=== PATIENT | male | born 1960 | race African-American/Black ===

== ENCOUNTER 2017-04-01 06:12 | Inpatient (IN) | payer OTHER ==
[2017-04-01] VITALS (31 sets, daily range): BP systolic 50–95; BP diastolic 16–82; PULSE 77–91; RESP 15–16; TEMP 98; Ht 177.8 cm; Wt 114.1 kg
[~2017-04-01] VITALS: Ht 177.8 cm; Wt 114.1 kg
[2017-04-01] MEDS ORDERED: PANTOPRAZOLE IV 80 MG in SOD CHLORIDE 0.9% 100 ML IV STA (06:31)
[2017-04-01] MEDS ORDERED: SOD CHLORIDE 0.9% 1,000 ML IV STA (06:31)
[2017-04-01] MEDS ORDERED: PANTOPRAZOLE IV 80 MG in SOD CHLORIDE 0.9% 100 ML IVPB STA (06:31)
[2017-04-01] MEDS ORDERED: ONDANSETRON 4 MG INJ IV STA (06:32)
[2017-04-01] MEDS ORDERED: HYDROmorphONE 1 MG/ML SYG IV STA (06:32)
[2017-04-01] MEDS ORDERED: EPINEPHrine 0.1 MG/ML SYG ONE ×2 (07:00→15:33)
--- NOTE | 2017-04-01 07:35 | RADRPT ---
PROCEDURE: XR Chest. CLINICAL INDICATION: Abdominal pain. Possible GI bleed. TECHNIQUE: Portable single view of the chest COMPARISON: 2012 FINDINGS: New AICD device is seen in place. Enlarged cardiopericardial silhouette. Reduced lung volumes with possible atelectasis or infiltrate of the right lower lobe. Left lung is clear. No large effusion . No definite acute bony abnormality. Top normal pulmonary vascularity. IMPRESSION: Enlarged cardiopericardial silhouette and AICD device. Question right base atelectasis or infiltrat e. Lateral view may be helpful. RPTAT: [facility] Physician Anthony Date Time Electronically viewed and signed by Susi Pinto Physician on 04/01/2017 07:35 LE/
[2017-04-01 07:57] LABS: ABNORMAL IP MESSAGE 1; BASOPHILS % 0.1 % (0.0-2.0); EOSINOPHILS % 0.2 % (0.0-7.0); HEMATOCRIT 20.3 % (42.0-52.0); LYMPHOCYTES # 1.8 10^3/ul (0.8-2.9); LYMPHOCYTES % 11.3 % (15.0-51.0); MEAN CORPUSCULAR HEMOGLOBIN 29.3 pg (29.0-33.0); MEAN CORPUSCULAR VOLUME 91.4 fl (82.0-101.0); MEAN PLATELET VOLUME 9.8 fl (7.4-10.4); MONOCYTE # 1.3 10^3/ul (0.3-0.9); MONOCYTES % 8.5 % (0.0-11.0); NEUTROPHIL # 12.3 10^3/ul (1.6-7.5); NEUTROPHILS % 77.9 % (39.0-77.0); PLATELET COUNT 163 10^3/UL (140-415); RED BLOOD COUNT 2.22 10^6/ul (4.70-6.10); RED CELL DISTRIBUTION WIDTH 15.9 % (11.5-14.5); WHITE BLOOD COUNT 15.7 10^3/ul (4.8-10.8)
[2017-04-01 08:02] LABS: ADD SCAN DIFF YES; HEMOGLOBIN 6.5 g/dl (14.0-18.0)
[2017-04-01 08:05] LABS: INR 2.94; PARTIAL THROMBOPLASTIN TIME 30.6 Sec (25.0-35.0); PROTIME 31.1 Sec (12.2-14.2); PT RATIO 2.4
[2017-04-01 08:11] LABS: ALBUMIN 2.9 g/dl (3.3-4.9)
[2017-04-01 08:12] LABS: POTASSIUM 3.7 mmol/L (3.5-5.1)
[2017-04-01 08:14] LABS: ALBUMIN/GLOBULIN RATIO 1.07; BILIRUBIN,INDIRECT 0.2 mg/dl (0-1.1); BILIRUBIN,TOTAL 0.2 mg/dl (0.2-1.3); CREATININE 1.78 mg/dl (0.61-1.24); TOTAL PROTEIN 5.6 g/dl (6.1-8.1)
[2017-04-01 08:15] LABS: CALCIUM 7.8 mg/dl (8.4-10.2)
--- NOTE | 2017-04-01 09:05 | ERA ---
ER Documentation Chief Complaint Date/Time DATE: 04/01/17 TIME: 09:01 Chief Complaint BIBA RA90,vomited dark red bld,diarrhea w/ dark red bld since 1999 last nig HPI This is a 56-year-old male who states he had 4 episodes of coffee-ground emesis this morning followed by 3 or 4 loose stools are described as a maroon color. The patient denies any NSAID or aspirin use but states he drinks nearly daily but is not an alcoholic. He said he did not drink last night. Patient not complaining of any dizziness. He says he has some very mild left-sided abdominal pain. No chest pain shortness of breath fainting or near syncope. He says he has never had any history of GI bleeding in the past. ROS All systems reviewed and are negative except as per history of present illness. Allergies Allergies: Coded Allergies: JACINDA Inhibitors (Verified Allergy, Unknown, 04/01/17) PMhx/Soc History of Surgery: No Anesthesia Reaction: No Hx Neurological Disorder: No Hx Respiratory Disorders: Yes Hx Cardiac Disorders: Yes Hx Psychiatric Problems: No Hx Miscellaneous Medical Probl: No Hx Alcohol Use: Yes Hx Substance Use: Yes (IN A PST USED DRUGS) Hx Tobacco Use: Yes (ACTIVE SMOKER) FmHx Family History: No coronary disease Physical Exam Vitals Vital Signs Date Time Temp Pulse Resp B/P Pulse Ox O2 Delivery O2 Flow Rate FiO2 04/01/17 06:43 79 14 128/88 100 Nasal Cannula 2.0 04/01/17 06:18 97.5 80 18 99/63 96 Physical Exam Const: Well-developed, well-nourished Head: Atraumatic, normocephalic Eyes: Normal Conjunctiva, PERRLA, EOMI, normal sclera, no nystagmus ENT: Normal External Ears, Nose and Mouth, moist mucus membranes. Neck: Full range of motion. No meningismus, no lymphadenopathy. Resp: Clear to auscultation bilaterally, no wheezing, rhonchi, rales Cardio: Regular rate and rhythm, no murmurs, S1 S2 present Abd: Soft, very mild left-sided mid abdominal pain, non distended. Normal bowel sounds, no guarding or rebound, no pulsitile abdominal masses or bruits Skin: No petechiae or rashes, no ecchymosis , no maculopapular rash Back: No midline or flank tenderness Ext: No cyanosis, or edema, FROM x 4, normal inspection, neurovascularly intact x 4 Neur: Awake and alert, STR 5/5 x 4, sensation intact x 4, no focal findings, cerebellum intact Psych: Normal Mood and Affect Result Diagram: 04/01/17 0730 04/01/17 0730 Results 24 hrs Laboratory Tests Test 04/01/17 07:30 White Blood Count 15.710^3/ul Red Blood Count 2.2210^6/ul Hemoglobin 6.5g/dl Hematocrit 20.3% Mean Corpuscular Volume 91.4fl Mean Corpuscular Hemoglobin 29.3pg Mean Corpuscular Hemoglobin Concent 32.0g/dl Red Cell Distribution Width 15.9% Platelet Count 69489^3/UL Mean Platelet Volume 9.8fl Neutrophils % 77.9% Lymphocytes % 11.3% Monocytes % 8.5% Eosinophils % 0.2% Basophils % 0.1% Nucleated Red Blood Cells % 0.0/100WBC Neutrophils # 12.310^3/ul Lymphocytes # 1.810^3/ul Monocytes # 1.310^3/ul Eosinophils # 0.010^3/ul Basophils # 0.010^3/ul Nucleated Red Blood Cells # 0.010^3/ul Prothrombin Time 31.1Sec Prothrombin Time Ratio 2.4 INR International Normalized Ratio 2.94 Activated Partial Thromboplast Time 30.6Sec Sodium Level 138mmol/L Potassium Level 3.7mmol/L Chloride Level 98mmol/L Carbon Dioxide Level 27mmol/L Anion Gap 17 Blood Urea Nitrogen 48mg/dl Creatinine 1.78mg/dl Glucose Level 142mg/dl Calcium Level 7.8mg/dl Total Bilirubin 0.2mg/dl Direct Bilirubin 0.00mg/dl Indirect Bilirubin 0.2mg/dl Aspartate Amino Transf (AST/SGOT) 53IU/L Alanine Aminotransferase (ALT/SGPT) 62IU/L Alkaline Phosphatase 64IU/L Total Protein 5.6g/dl Albumin 2.9g/dl Globulin 2.70g/dl Albumin/Globulin Ratio 1.07 Lipase 249U/L Current Medications Medications (Trade) Dose Ordered Sig/Vonnie Route PRN Reason Start Time Stop Time Status Last Admin Dose Admin Sodium Chloride 1,000 ml @ 1,000 mls/hr Q1H STAT IV 04/01/17 06:31 04/01/17 07:30 DC 04/01/17 07:27 Pantoprazole 80 mg/Sodium Chloride 100 ml @ 400 mls/hr ONCE STAT IVPB 04/01/17 06:31 04/01/17 06:45 DC 04/01/17 08:29 Pantoprazole/ Sodium Chloride (Protonix Iv/NS) 100 ml @ 10 mls/hr ONCE STAT IV 04/01/17 06:31 04/01/17 16:30 Hydromorphone HCl (Dilaudid) 1 mg ONCE STAT IV 04/01/17 06:32 04/01/17 06:33 DC 04/01/17 07:26 Ondansetron HCl (Zofran Inj) 4 mg ONCE STAT IV 04/01/17 06:32 04/01/17 06:33 DC 04/01/17 07:26 Procedures/MDM PROCEDURE: XR Chest. CLINICAL INDICATION: Abdominal pain. Possible GI bleed. TECHNIQUE: Portable single view of the chest COMPARISON: 2012 FINDINGS: New AICD device is seen in place. Enlarged cardiopericardial silhouette. Reduced lung volumes with possible atelectasis or infiltrate of the right lower lobe. Left lung is clear. No large effusion. No definite acute bony abnormality. Top normal pulmonary vascularity. IMPRESSION: Enlarged cardiopericardial silhouette and AICD device. Question right base atelectasis or infiltrate. Lateral view may be helpful. RPTAT: [facility] Physician Anthony Date Time Electronically viewed and signed by Susi Pinto Physician on 04/01/2017 07 :35 JAY/ CC: ASH WEINBERG DO EKG: Rate/Rhythm: Normal Sinus Rhythm,NL intervals QRS, ST, QT: NORMAL PA, QRS, prolonged QT] Impression: NORMAL EKG Spoke with GIs consultation Patient's hemoglobin is 6.5 will start transfusing 2 units of packed red blood cells. The patient is on Protonix drip and bolus. We will admit the patient for endoscopy, packed red blood cell transfusion and GI bleed workup Critical Care Time: 30 minutes Treatments/Evaluations: Close monitoring and treatment of unstable vital signs, cardiorespiratory, and neurologic status, while maintaining tight balance of fluid, respiratory, and cardiac interventions. This time includes discussing the case with the patient and the patient's family. This time does not include all procedures stated elsewhere in this record. This time also includes reviewing old records, labs and radiological studies. This time includes examining and re-examining the patient. Additionally, this time also includes arranging care with admitting and consulting physicians. Departure Diagnosis: Primary Impression: GI bleed Qualified Code: K92.2 - Gastrointestinal hemorrhage, unspecified gastrointestinal hemorrhage type Additional Impression: Anemia Qualified Code: D64.9 - Anemia, unspecified type Condition: Stable ASH WEINBERG DO April 01, 2017 09:05
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
[2017-04-01] MEDS ORDERED: SOD CHLORIDE 0.9% 1,000 ML IV SCH ×2 (09:28→16:00)
[2017-04-01] MEDS ORDERED: ACETAMINOPHEN 325 MG TAB PO PRN (09:30)
[2017-04-01] MEDS ORDERED: ONDANSETRON 4 MG INJ IV PRN (09:30)
[2017-04-01] MEDS ORDERED: LIDOCAINE 1% (MPF) 5 ML VIAL SC ONE (10:00)
[2017-04-01] MEDS ORDERED: ONDANSETRON (ODT) 4 MG TAB ODT STA (10:12)
[2017-04-01] MEDS ORDERED: ASPI81TA3 PO (11:05)
[2017-04-01] MEDS ORDERED: ATOR80TA75 PO (11:05)
[2017-04-01] MEDS ORDERED: BUME1TAB18 PO (11:05)
[2017-04-01] MEDS ORDERED: HYDR-3672 PO (11:05)
[2017-04-01] MEDS ORDERED: SPIR25TA PO (11:05)
[2017-04-01] MEDS ORDERED: ISOS60TA PO (11:05)
[2017-04-01] MEDS ORDERED: AMLO5TAB4 PO (11:05)
[2017-04-01] MEDS ORDERED: WARF5TAB72 PO (11:05)
[2017-04-01] MEDS ORDERED: METO-429 PO (11:05)
[2017-04-01] MEDS ORDERED: AMIO200T2 PO (11:05)
[2017-04-01] MEDS ORDERED: BECL8.7A INH (11:05)
[2017-04-01] MEDS ORDERED: MAGN400T27 PO (11:05)
[2017-04-01] MEDS ORDERED: OMEP20CA16 PO (11:05)
[2017-04-01] MEDS ORDERED: MIDAZOLAM (DRIP) 50 mg/50 mL 50 ML IV STA (12:33)
[2017-04-01] MEDS ORDERED: MIDAZOLAM 1 MG/ML 2 ML INJ ONE (12:35)
--- NOTE | 2017-04-01 12:44 | RADRPT ---
PROCEDURE: XR Chest. CLINICAL INDICATION: PICC placement. TECHNIQUE: Chest x-ray, single view. COMPARISON: 04/01/2017. FINDINGS: The heart is enlarged. Pacemaker leads terminate within the expected locations of the right atrium and right ventricle. The lungs are clear. A left upper extremity PICC is in place. The tip of the catheter is obscured by the AICD device within the left upper chest. The PICC line does not extend b eyond this portion of the chest suggesting termination within the expected location of the mid dista l left subclavian vein. The endotracheal tube terminates within the mid trachea approximately 3.5 cm above the benjamin. Skeletal structures and upper abdomen are unremarkable. IMPRESSION: Left upper extremity PICC terminating within the expected location of the mid distal left subclavian vein. RPTAT: QQ .Radha Greer MD, Date Time Electronically viewed and signed by .Radha Greer MD, on 04/01/2017 12:44 .T/
[2017-04-01] MEDS ORDERED: OCTREOTIDE 500 MCG in SOD CHLORIDE 0.9% 49 ML IV STA (13:31)
[2017-04-01] MEDS ORDERED: OCTREOTIDE 50 MCG in SOD CHLORIDE 0.9% 25 ML IVPB STA (13:31)
--- NOTE | 2017-04-01 13:46 | RADRPT ---
PROCEDURE: US guidance for PICC line CLINICAL INDICATION: PICC line placement TECHNIQUE: Multiple real-time images were acquired of the patient's arm utilizing a high resolutio n transducer. This was performed by the PICC line nurse for venous access. COMPARISON: None FINDINGS: Ultrasound guidance for PICC line placement. IMPRESSION: Ultrasound guidance for PICC line placement. RPTAT: AA .Caleb Najera MD, MD Date Time Electronically viewed and signed by .Caleb Najera MD, on 04/01/2017 13:45 .S/
[2017-04-01 13:52] LABS: AADO2 Arterial 354.4 mmHg (7.0-24.0); Arterial COHb 0.3 % (0.0-3.0); Arterial Fraction of Oxyhgb 97.7 % (93.0-99.0); Arterial HCO3 7.7 mmol/L (22.0-26.0); Arterial MetHb 0.7 % (0.0-1.5); Arterial Total Hemglobin 8.1 g/dl (12.0-18.0); Blood Gas Low PEEP Setting 0 cmH2O; MODE VENT-AC
[2017-04-01 13:54] LABS: HEMATOCRIT 26.1 % (42.0-52.0); HEMOGLOBIN 7.6 g/dl (14.0-18.0)
[2017-04-01] MEDS ORDERED: NA BICARBONATE 8.4% 50 ML SYG IV ONE ×2 (14:00)
[2017-04-01] MEDS ORDERED: PHYTONADIONE 10 MG in DEXTROSE 5% 50 ML IVPB ONE ×5 (14:00→17:00)
--- NOTE | 2017-04-01 14:43 | CONS ---
Date/Time of Note Date/Time of Note DATE: 04/01/17 TIME: 14:24 Assessment/Plan Assessment/Plan Additional Assessment/Plan Assessment * Hematemesis Upper GI bleed least likely lower GI bleed Consider esophageal varices vs bleeding peptic ulcer disease * S/P cardiopulmonary arrest with ROSC * History of ETOH abuse * History of AICD * hypertension * History of heart failure * COPD Plan * Emergency EGD risks and benefit explained to common law agreed with planned procedure * Transfuse blood and monitor hemoglobin and hematocrit q 6 * PPI/octreotide drip Consultation Date/Type/Reason Admit Date/Time Date of Consultation: April 01, 2017 Type of Consultation: gastroenteroly Reason for Consultation upper gi bleed Referring Provider: MARSHA AVILA Hx of Present Illness 56 y/o male with past medical history of AICD,2 stents CAD,hypertension, cardiomyopathy,history of tracheostomy was brought to emergency room because of vomiting of blood x3 and hematochezia with associated weakness . Emergency room course revealed anemia with hemoglobin of 6.5,CT abdomen pelvis Mild diffuse wall thickening of the stomach more evident at the fundus with large volume debris.. Indeterminate 2 cm nodule in the right adrenal gland.. Borderline small size kidneys with no hydronephrosis.. Normal appendix.. Aortoiliac atherosclerosis.. Scattered colonic diverticula without evidence of acute diverticulitis.. Fat containing bilateral inguinal hernias. Mild cardiomegaly. Air trapping in the right middle lobe. Diffuse mild bronchial wall thickening. patient was awake and responsive however at around 1200 patient was unresponsive, cardiopulmonary resuscitation was performed and blood transfusion was started.Orogastric tube revealed fresh blood around 100 cc.Patient is presently intubated ,receiving blood.The common law claimed patient is on Coumadin prothrombin time 31.1 INR 2.94 PTT 30.6 .4 units of FFP and vitamin K is ordered I have explained the planned procedure with the partner and agreed with the planned procedure Past Medical History Medical History: congestive heart failure, coronary artery disease, GI bleed, high cholesterol, hypertension, other (copd) Past Surgical History Past Surgical Hx: other (tracheostomy,2 stents,) Family History Significant Family History: no pertinent family hx Social History Alcohol Use: heavy (4 cans of beer 4x a week) Smoking Status: Current every day smoker Exam/Review of Systems Vital Signs Vitals Vital Signs Date Time Temp Pulse Resp B/P Pulse Ox O2 Delivery O2 Flow Rate FiO2 04/01/17 14:00 75 23 100 50 04/01/17 13:45 98.0 99/34 Mechanical Ventilator 10.0 Exam Constitutional: frail Eyes: nl conjunctiva, nl sclera ENMT: intubated, other (orogastric tube) Neck: non-tender, supple Respiratory: clear to auscultation, diminished breath sounds Cardiovascular: nl pulses, regular rate and rhythm Gastrointestinal: non-tender, soft Musculoskeletal: nl extremities to inspection, nl gait and stance Extremities: normal pulses Skin: nl turgor, No rash or lesions Lymph: nl lymph nodes Results Result Diagram: 04/01/17 1345 04/01/17 0730 Results 24 hrs Laboratory Tests Test 04/01/17 07:30 04/01/17 10:42 04/01/17 13:30 04/01/17 13:45 White Blood Count 15.7 H Red Blood Count 2.22 L Hemoglobin 6.5 *L 7.6 L Hematocrit 20.3 L 26.1 #L Mean Corpuscular Volume 91.4 Mean Corpuscular Hemoglobin 29.3 Mean Corpuscular Hemoglobin Concent 32.0 Red Cell Distribution Width 15.9 H Platelet Count 163 Mean Platelet Volume 9.8 Neutrophils % 77.9 H Lymphocytes % 11.3 L Monocytes % 8.5 Eosinophils % 0.2 Basophils % 0.1 Nucleated Red Blood Cells % 0.0 Neutrophils # 12.3 H Lymphocytes # 1.8 Monocytes # 1.3 H Eosinophils # 0.0 Basophils # 0.0 Nucleated Red Blood Cells # 0.0 Prothrombin Time 31.1 H Prothrombin Time Ratio 2.4 INR International Normalized Ratio 2.94 Activated Partial Thromboplast Time 30.6 Sodium Level 138 Potassium Level 3.7 Chloride Level 98 Carbon Dioxide Level 27 Anion Gap 17 H Blood Urea Nitrogen 48 H Creatinine 1.78 H Glucose Level 142 Calcium Level 7.8 L Total Bilirubin 0.2 Direct Bilirubin 0.00 Indirect Bilirubin 0.2 Aspartate Amino Transf (AST/SGOT) 53 H Alanine Aminotransferase (ALT/SGPT) 62 Alkaline Phosphatase 64 Total Protein 5.6 L Albumin 2.9 L Globulin 2.70 Albumin/Globulin Ratio 1.07 Lipase 249 Bedside Glucose 130 Blood Gas Specimen Source Blood arterial Arterial Blood Date Drawn 04/01/2017 1:40:06 PM Arterial Blood pH (Temp corrected) 6.821 *L Arterial Blood pCO2 (Temp correct) 48.4 H Arterial Blood pO2 (Temp corrected) 310.2 H Arterial Blood HCO3 7.7 *L Arterial Blood Base Excess -25.0 L Arterial Blood Oxygen Saturation 98.7 H [place] Test N/A Arterial Blood Gas Puncture Site Left Radial Arterial Blood Carboxyhemoglobin 0.3 Arterial Blood Methemoglobin 0.7 Blood Gas A-a O2 Differential 354.4 H Oxyhemoglobin Percent 97.7 Total Hemoglobin 8.1 L Blood Gas Temperature 37.0 Blood Gas Respiration Rate 16.0 Blood Gas Actual Respiration Rate 18 Blood Gas Modality VENT-AC FiO2 100.0 Blood Gas Tidal Volume 550.0 Blood Gas Low PEEP Setting 0 Blood Gas Inspiratory Pressure 26.0 Blood Gas Critical Value Read Back MD LAURO Blood Gas Notified Whom KENDRA Blood Gas Notified Time 04/01/2017 1:52:49 PM Medications Medications Current Medications Sodium Chloride 1,000 ml @ 80 mls/hr [id number] IV Last administered on t 12:48; Admin Dose 80 MLS/HR; Start 04/01/17 at 09:28; Stop 04/01/17 at 21: 57 Phytonadione/ Dextrose (Vitamin K/D5W) 51 ml @ 102 mls/hr ONCE ONCE IVPB ; Start 04/01/17 at 14:00; Stop 04/01/17 at 14:29 RAMSES GARAY MD April 01, 2017 14:35
[2017-04-01] MEDS ORDERED: ROCURONIUM 50 MG INJ ONE (15:21)
[2017-04-01] MEDS ORDERED: PHENYLephrine (100 MCG/ML) 5ML SYG ONE (15:25)
[2017-04-01] MEDS ORDERED: EPHEDrine SULFATE 50 MG/5 ML SYG ONE (15:31)
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
[2017-04-01] MEDS ORDERED: NORepinephrine 8MG/250 ML (PMX 250 ML ONE (16:39)
[2017-04-01] MEDS ORDERED: PHENYLephrine 20MG IN 250 ML 250 ML ONE (16:48)
[2017-04-01] MEDS ORDERED: OCTREOTIDE 1 MG in SOD CHLORIDE 0.9% 95 ML IV SCH (17:30)
[2017-04-01] MEDS ORDERED: NA BICARBONATE 8.4% 50 ML SYG ONE (17:49)
[2017-04-01] MEDS ORDERED: CA CHLORIDE 10% 10 ML SYRINGE ONE (17:49)
[2017-04-01] MEDS ORDERED: PHENYLEPHRINE ONE (17:54)
[2017-04-01] MEDS: PANTOPRAZOLE IV 80 MG in SOD CHLORIDE 0.9% 100 ML IV SCH (18:05)
[2017-04-01] MEDS: SODIUM BICARBONATE (IV ADD) 100 MEQ in DEXTROSE 5% 1,000 ML IV SCH (18:05)
[2017-04-01 18:22] LABS: ADD SCAN DIFF NO
[2017-04-01 18:23] LABS: ABNORMAL IP MESSAGE 1; HEMATOCRIT 24.8 % (42.0-52.0); HEMOGLOBIN 7.6 g/dl (14.0-18.0); MEAN CORPUSCULAR HGB CONC 30.6 g/dl (32.0-37.0); MEAN PLATELET VOLUME 10.7 fl (7.4-10.4); RED BLOOD COUNT 2.53 10^6/ul (4.70-6.10); RED CELL DISTRIBUTION WIDTH 15.1 % (11.5-14.5); WHITE BLOOD COUNT 23.1 10^3/ul (4.8-10.8)
[2017-04-01 18:29] LABS: PLATELET COUNT 106 10^3/UL (140-415)
[2017-04-01] MEDS ORDERED: VASOPRESSIN 60 UNIT in DEXTROSE 5% 57 ML IV SCH (18:30)
[2017-04-01 18:32] LABS: INR 2.75; PROTIME 29.5 Sec (12.2-14.2); PT RATIO 2.3
[2017-04-01 18:33] LABS: PARTIAL THROMBOPLASTIN TIME 42.3 Sec (25.0-35.0)
[2017-04-01 18:49] LABS: EOSINOPHILS # 0.5 10^3/ul (0.0-0.5); LYMPHOCYTES # 2.3 10^3/ul (0.8-2.9); MONOCYTE # 0.2 10^3/ul (0.3-0.9); NEUTROPHIL # 20.1 10^3/ul (1.6-7.5)
[2017-04-01 18:50] LABS: ANISOCYTOSIS 1+; MICROCYTOSIS 1+; POLYCHROMASIA 1+
[2017-04-01 18:51] LABS: AADO2 Arterial 217.2 mmHg (7.0-24.0); Arterial Base Excess -23.7 mmol/L (-3.0-3); Arterial COHb 0.3 % (0.0-3.0); Arterial Fraction of Oxyhgb 82.7 % (93.0-99.0); Arterial HCO3 9.5 mmol/L (22.0-26.0); Arterial MetHb 0.5 % (0.0-1.5); Arterial Total Hemglobin 8.9 g/dl (12.0-18.0); Blood Gas Low PEEP Setting 0 cmH2O; MODE VENT - AC
--- NOTE | 2017-04-01 18:58 | PRO ---
Date/Time of Note Date/Time of Note DATE: 04/01/17 TIME: 18:55 Radial A-Line Placement PROCEDURE NOTE PROCEDURE: L femoral artery line placement. (A-line) INDICATION: hypotension on vasopressors PROCEDURE RETAIL LOSS PREVENTION INVESTIGATOR: Samir Castillo CONSENT: obtained. Timeout was performed. PROCEDURE SUMMARY: The patient was prepped and draped in the usual sterile manner using chlorhexidine scrub. Pt sedated, no local used. The [LEFT femoral artery was visualized under ultrasound and successfully cannulated with 20G arrow kit. Pulsatile, arterial blood was visualized and the artery was then threaded using the Seldinger technique and a catheter was placed.. Good wave-form was obtained. The patient tolerated the procedure well without any immediate complications. The area was cleaned and Tegaderm was applied. Dr. Castillo was present during the entire procedure. ESTIMATED BLOOD LOSS: [ <1mL] ANDRES CASTILLO MD April 01, 2017 18:58
[2017-04-01] MEDS ORDERED: CA CHLORIDE 10% 10 ML SYRINGE IV ONE (19:00)
[2017-04-01] MEDS: PHENYLephrine 40 MG in DEXTROSE 5% 496 ML IV SCH ×2 (19:00→21:43)
[2017-04-01] MEDS: EPINEPHrine 4 MG in SOD CHLORIDE 0.9% 246 ML IV SCH ×2 (19:00→22:57)
[2017-04-01] MEDS ORDERED: NA BICARBONATE 8.4% 50 ML SYG IV STA (19:04)
[2017-04-01 19:36] LABS: POTASSIUM 4.1 mmol/L (3.5-5.1)
[2017-04-01 19:37] LABS: CALCIUM 7.7 mg/dl (8.4-10.2); CREATININE 2.72 mg/dl (0.61-1.24); MAGNESIUM 2.3 mg/dl (1.7-2.5)
[2017-04-01 19:38] LABS: ALBUMIN 2.1 g/dl (3.3-4.9); TOTAL PROTEIN 4.2 g/dl (6.1-8.1)
[2017-04-01 19:41] LABS: BILIRUBIN,INDIRECT 0.1 mg/dl (0-1.1); BILIRUBIN,TOTAL 0.1 mg/dl (0.2-1.3)
[2017-04-01] MEDS ORDERED: DEXTROSE 50% 50 ML SYRINGE ONE (19:51)
[2017-04-01] MEDS ORDERED: ALBUMIN HUMAN 25% 100 ML IV ONE (20:00)
[2017-04-01] MEDS ORDERED: DEXTROSE 50% 50 ML SYRINGE IV ONE (20:00)
[2017-04-01] MEDS: DOPamine 800 MG in DEXTROSE 5% 230 ML IV SCH (20:29)
[2017-04-01 21:12] LABS: HEMATOCRIT 22.3 % (42.0-52.0)
[2017-04-02] VITALS (27 sets, daily range): BP systolic 0–97; BP diastolic 0–56; PULSE 0–84; RESP 16–32
[2017-04-02] MEDS: PHENYLephrine 40 MG in DEXTROSE 5% 496 ML IV SCH (00:02)
[2017-04-02] MEDS: DOPamine 800 MG in DEXTROSE 5% 230 ML IV SCH (01:47)
[2017-04-02 01:49] LABS: HEMATOCRIT 27.4 % (42.0-52.0); HEMOGLOBIN 8.5 g/dl (14.0-18.0)
[2017-04-02] MEDS: SODIUM BICARBONATE (IV ADD) 100 MEQ in DEXTROSE 5% 1,000 ML IV SCH (01:55)
[2017-04-02] MEDS: PANTOPRAZOLE IV 80 MG in SOD CHLORIDE 0.9% 100 ML IV SCH (01:55)
[2017-04-02 02:03] LABS: AADO2 Arterial 535.6 mmHg (7.0-24.0); Arterial Base Excess -20.2 mmol/L (-3.0-3); Arterial COHb 0.3 % (0.0-3.0); Arterial Fraction of Oxyhgb 92.4 % (93.0-99.0); Arterial HCO3 13.4 mmol/L (22.0-26.0); Arterial MetHb 0.6 % (0.0-1.5); Arterial Total Hemglobin 9.1 g/dl (12.0-18.0); MODE VENT - AC
[2017-04-02] MEDS ORDERED: SODIUM BICARBONATE (IV ADD) 150 MEQ in DEXTROSE 5% 1,000 ML IV SCH (02:16)
[2017-04-02] MEDS ORDERED: NA BICARBONATE 8.4% 50 ML SYG IV ONE (02:30)
[2017-04-02] MEDS ORDERED: PHENYLephrine 160 MG in DEXTROSE 5% 484 ML IV SCH (04:00)
[2017-04-02 04:22] LABS: AADO2 Arterial 532.5 mmHg (7.0-24.0); Arterial Base Excess -13.5 mmol/L (-3.0-3); Arterial COHb 0.3 % (0.0-3.0); Arterial Fraction of Oxyhgb 88.7 % (93.0-99.0); Arterial HCO3 19.7 mmol/L (22.0-26.0); Arterial MetHb 0.5 % (0.0-1.5); Arterial Total Hemglobin 8.8 g/dl (12.0-18.0); Blood Gas PS 44; MODE VENT - PC
[2017-04-02 06:23] LABS: ADD SCAN DIFF NO
[2017-04-02 06:31] LABS: BASOPHILS % 0.1 % (0.0-2.0); EOSINOPHILS % 0.1 % (0.0-7.0); HEMATOCRIT 25.8 % (42.0-52.0); LYMPHOCYTES # 1.5 10^3/ul (0.8-2.9); LYMPHOCYTES % 9.5 % (15.0-51.0); MEAN CORPUSCULAR HEMOGLOBIN 28.9 pg (29.0-33.0); MEAN CORPUSCULAR VOLUME 93.1 fl (82.0-101.0); MEAN PLATELET VOLUME 10.3 fl (7.4-10.4); MONOCYTE # 0.7 10^3/ul (0.3-0.9); MONOCYTES % 4.3 % (0.0-11.0); NEUTROPHIL # 12.6 10^3/ul (1.6-7.5); NEUTROPHILS % 81.4 % (39.0-77.0); NUCLEATED RED BLOOD CELLS # 0.7 10^3/ul (0.0-0.0); NUCLEATED RED BLOOD CELLS% 4.6 /100WBC (0.0-0.0); PLATELET COUNT 135 10^3/UL (140-415); RED BLOOD COUNT 2.77 10^6/ul (4.70-6.10); RED CELL DISTRIBUTION WIDTH 16.4 % (11.5-14.5); WHITE BLOOD COUNT 15.5 10^3/ul (4.8-10.8)
[2017-04-02 06:56] LABS: INR 2.66; PROTIME 28.7 Sec (12.2-14.2); PT RATIO 2.2
[2017-04-02 08:01] LABS: ALBUMIN 2.5 g/dl (3.3-4.9); CHLORIDE 94 mmol/L (97-110)
[2017-04-02 08:02] LABS: POTASSIUM 5.4 mmol/L (3.5-5.1); SODIUM 139 mmol/L (135-144)
[2017-04-02 08:04] LABS: BILIRUBIN,INDIRECT 0.3 mg/dl (0-1.1); BILIRUBIN,TOTAL 0.3 mg/dl (0.2-1.3); CREATININE 3.84 mg/dl (0.61-1.24)
[2017-04-02 08:05] LABS: ALBUMIN/GLOBULIN RATIO 1.13; ALKALINE PHOSPHATASE 73 IU/L (42-121); ANION GAP 29 (8-16); BLOOD UREA NITROGEN 44 mg/dl (7-20); CALCIUM 6.1 mg/dl (8.4-10.2); CARBON DIOXIDE 21 mmol/L (21-31); GLUCOSE 276 mg/dl (70-220); TOTAL PROTEIN 4.7 g/dl (6.1-8.1)
[2017-04-02 08:06] LABS: MAGNESIUM 1.9 mg/dl (1.7-2.5)
--- NOTE | 2017-04-02 08:13 | RADRPT ---
PROCEDURE: XR Chest. CLINICAL INDICATION: Respiratory failure TECHNIQUE: An AP view of the chest was obtained. COMPARISON: Chest x-ray dated 04/01/2017 at 12:30 p.m. FINDINGS: The endotracheal tube tip is approximately 7.2 cm above the benjamin. There is a left subclavian [place] l chamber pacemaker AICD. Lung volumes are low. There is prominence of the interstitial markings with small bilateral pleura l effusions. No focal airspace opacification or pneumothorax is seen. The cardiomediastinal silho uette is mildly enlarged . Calcifications are seen within the aortic arch. The osseous structures demonstrate senescent changes. IMPRESSION: 1. Findings suggestive of interstitial edema with small bilateral pleural effusions. No significant interval change. 2. Mild cardiomegaly and aortic atherosclerosis. 3. Tubes and lines, as described above. Endotracheal tube tip is 7.2 cm above the benjamin. Advancin g 3-4 cm is recommended. RPTAT: HH .Sagrario Gatica MD, MD Date Time Electronically viewed and signed by .Sagrario Gatica MD, on 04/02/2017 08:13 .G/
[2017-04-02 08:59] LABS: ALANINE AMINOTRANSFERASE 4189 IU/L (13-69)
[2017-04-02 09:12] LABS: ASPARTATE AMINO TRANSFERASE > 7500 IU/L (15-46)
--- NOTE | 2017-04-03 06:14 | GILP ---
DATE OF PROCEDURE: 04/01/2017 PROCEDURE: Emergency esophagogastroduodenoscopy. PREMEDICATION: General anesthesia. BRIEF HISTORY AND INDICATIONS: The patient presented to the emergency room complaining of nausea an d vomiting coffee-ground material. He also reported bloody bowel movement. As he was being evaluat ed in [place], the patient apparently had a cardiorespiratory arrest for which he responded quickly. Sub sequent to this, as line was being inserted, he arrested again. He also responded with the rhythm, but his blood pressure has been extremely labile. The patient also has an NG tube with initially la rge amounts of blood which apparently has ____ to return bloody effluent. This procedure undertaken on an emergency basis, even though the patient appears somewhat unstable given the significant natu re of these problems. INSTRUMENT USED: Olympus panendoscope. TECHNIQUE: After informed consent, with the patient/relatives understanding the procedure, its indic ations, potential risks and complications, including but not limited to: allergic reaction, bleeding , perforation or infection, and after all pertinent questions were answered to the patients satisfac tion, the patient/relatives signed witnessed informed consent. Following this, premedication was administered slowly IV push under careful cardiovascular and respi ratory monitoring with pulse oximetry, automatic blood pressure and tobacco classer. Once the sedative effect was achieved the patient was place in the left lateral decubitus, the panen doscope was introduced and advanced under visual control. Careful examination of the upper gastrointestinal tract, both on insertion as well as withdrawal of the instrument disclosed the following findings: ESOPHAGUS: There is no evidence of esophageal varices or other potential bleeding site in the esoph israel. STOMACH: Upon entrance to the stomach, air was insufflated, the gastric marcelino distended normally. Large amounts of liquid blood as well as clots are present and suctioned out extensively with partia l clearing. The fundus was not well visualized. The distal body and antrum of stomach showed eryth geraldine and edema of the mucosa as well as friability. No ulcers or definitive bleeding sites identifie d. PYLORUS: The pylorus appears patent and within normal limits, with no evidence of gastric outlet ob struction. DUODENUM: The duodenal shows erythema and edema of the mucosa with superficial erosions. The instrument was then withdrawn. IMPRESSION: 1. No evidence of esophageal varices. 2. Large amounts of clots in the stomach, partially cleared. Fundus was not well visualized. No a ccumulation of active bleeding present. 3. Moderate gastritis, body and antrum of the stomach. No active bleeding or potential bleeding si te. 4. Erosive duodenitis. PLAN: The patient will be treated aggressively with octreotide, PPI drip, reversal of anticoagulati on as soon as possible, and supportive transfusions to maintain a hemoglobin level of higher than 7. 5. The patient, however, appears to be hemodynamically unstable at the present time, more so on the basis of cardiovascular previously illness. His prognosis is extremely poor. Dictated By: RAMSES AGRAWAL Conf#: [id number] DID#: [id number]
== END 2017-04-02 05:46 | disposition expired | DRG 377 ==
LOC: E/R 06:12 → SDS 15:30 → UNDOADMIN 17:26 → ICU 17:26 → UNDODISIN 04-02 05:46
PROVIDERS: ADMIT Internal Medicine; ATTEND Internal Medicine
PROC: 30233R1 Transfusion of Nonautologous Platelets into Peripheral Vein, Percutaneous Approach (ICD-10-PCS; 2017-04-01)
PROC: 30233K1 Transfusion of Nonautologous Frozen Plasma into Peripheral Vein, Percutaneous Approach (ICD-10-PCS; 2017-04-01)
PROC: 05H633Z Insertion of Infusion Device into Left Subclavian Vein, Percutaneous Approach (ICD-10-PCS; 2017-04-01)
PROC: 0BH17EZ Insertion of Endotracheal Airway into Trachea, Via Natural or Artificial Opening (ICD-10-PCS; 2017-04-01)
PROC: 5A1935Z Respiratory Ventilation, Less than 24 Consecutive Hours (ICD-10-PCS; 2017-04-01)
PROC: 04HL33Z Insertion of Infusion Device into Left Femoral Artery, Percutaneous Approach (ICD-10-PCS; 2017-04-01)
PROC: 0DJ08ZZ Inspection of Upper Intestinal Tract, Via Natural or Artificial Opening Endoscopic (ICD-10-PCS; 2017-04-01)
PROC: 30233N1 Transfusion of Nonautologous Red Blood Cells into Peripheral Vein, Percutaneous Approach (ICD-10-PCS; principal; 2017-04-01 14:45)
DX: K92.0 Hematemesis (principal); J96.90 Respiratory failure, unspecified, unspecified whether with hypoxia or hypercapnia; R57.1 Hypovolemic shock; N17.9 Acute kidney failure, unspecified; F17.200 Nicotine dependence, unspecified, uncomplicated; I46.9 Cardiac arrest, cause unspecified; F10.20 Alcohol dependence, uncomplicated; D64.9 Anemia, unspecified; Z95.0 Presence of cardiac pacemaker; K92.1 Melena; Z79.01 Long term (current) use of anticoagulants; Z95.1 Presence of aortocoronary bypass graft; I10 Essential (primary) hypertension; Z95.5 Presence of coronary angioplasty implant and graft; J44.9 Chronic obstructive pulmonary disease, unspecified; K29.70 Gastritis, unspecified, without bleeding; K29.80 Duodenitis without bleeding
CPT/HCPCS: 31500; 36415; 36430; 36569; 36600; 71010; 74176; 76937; 80053; 82803; 82962; 83690; 83735; 84100; 85014; 85018; 85025; 85610; 85730; 86644; 86850; 86900; 86901; 86920; 92950; 93005; 94002; 94003; 94770; 96374; 96375; 96376; C9113; G0378; J0171; J1170; J1265; J1644; J2250; J2354; J2370; J2405; J7030; J7050; J7060; J7070; P9016; P9035; P9047; P9059